=== PATIENT | male | born 1995 | race Caucasian/White ===

== ENCOUNTER 2025-03-15 18:24 | Emergency (ER) | payer BC ==
[2025-03-15] MEDS: Diphtheria,Pertussis(Acell),Tetanus Vaccine 0.5 ML Syringe IM ONE (19:47)
[2025-03-15] MEDS: Lidocaine 1% 10 ML MDV INJECT ONE (19:50)
== END 2025-03-15 19:55 | disposition home or self-care (01) ==
LOC: JD.ED 18:24
DX: S61.211A Laceration without foreign body of left index finger without damage to nail, initial encounter (principal); Z23 Encounter for immunization; Z88.8 Allergy status to other drugs, medicaments and biological substances; Z86.16 Personal history of COVID-19; W29.0XXA Contact with powered kitchen appliance, initial encounter
CPT/HCPCS: 12001; 90471; 90715; 99282; J2003